=== PATIENT | male | born 1980 | race Caucasian/White ===

== ENCOUNTER 2018-10-18 15:57 | Observation (INO) | payer OTHER ==
[2018-10-18] MEDS ORDERED: diphenhydrAMINE 50 MG/ML VIAL ONE (16:14)
[2018-10-18] MEDS ORDERED: Famotidine/PF 20 mg/2ml Vial ONE (16:14)
[2018-10-18] MEDS ORDERED: EPINEPHrine 1 MG/ML AMP ONE (18:07)
--- NOTE | 2018-10-18 19:14 | PDOC.FPRHP ---
- History of Present Illness Chief Complaint: insect sting causing facial swelling History of Present Illness: 37 y/o male patient with a pmhx of staph infection in hardware of his right lower extremity, presents with lower facial swelling after being stung by an insect, presumably a wasp, around 1500 today. He states initially there was intense pain, and 10 minutes after the sting he had diffuse itching. 20 minutes after the sting he noticed swelling wrapping around his neck to his lower face in the arango distribution. He denies any tongue or throat swelling. He denies being light headed, or sensations of near passing out. He does not report any difficulty breathing, chest pain, abdominal pain, nausea, vomiting or diarrhea. He states he had a red rash diffusely over his skin, that appeared like a sunburn, but with no sun exposure. He had been drinking beer all day and was worried about "passing out," and not being aware of anaphylaxis. He called EMS, who reported a low O2 saturation and high pulse rate. EMS gave epi, solumedrol, and 1L bolus fluids in route to the ED. He received epi, benadryl and fluids in the ED because of continued low O2 saturation and systolic BP's in the 90's. ED Course: EMS gave epi, solumedrol, and 1L bolus fluids in route to the ED. He received epi, benadryl and 2 L's IV fluids in the ED because of continued low O2 saturation and systolic BP's in the 90's. - Allergies/Adverse Reactions Allergies Allergy/AdvReac Type Severity Reaction Status Date / Time venom-wasp Allergy Severe Anaphylaxis Verified 10/18/18 19:31 cefazolin [From Ancef] Allergy Unverified 10/18/18 19:15 - History PMHx: staph infection of hardware in RLE 2017 PSHx: Trauma with hardware placement in RLE and L-collar bone 2010. Removal of hardware in RLE 2016. FHx: non-contributory. States his parents and siblings do not have any medical problems. Social: drinks a pack of beer weekly. Smokes 1ppd for 25 years. past history of drug abuse (cocaine, speed, marijuana), no drug use in 17 years. - Review of Systems General: denies: fever/chills, weight/appetite/sleep changes, night sweats, fatigue Eyes: reports: other (itching eyes). denies: eye pain, vision changes ENT: denies: nasal congestion, rhinorrhea Respiratory: denies: cough, shortness of breath Cardiovascular: denies: chest pain, palpitation Gastrointestinal: denies: nausea, vomiting, diarrhea, abdominal pain Genitourinary: denies: incontinence Skin: reports: rashes, itching. denies: jaundice Musculoskeletal: reports: swelling (swelling to lower face and back of neck). denies: pain Neurological: denies: numbness, syncope, weakness - Vital signs BP: [102/69] HR: [84] RR: [13] Tmax: [98.4] Pox: [99]% on [1L] Wt: [77kg] - Physical Exam Constitutional: NAD, awake, alert and oriented, well developed HEENT: normocephalic and atraumatic, PERRLA, EOMI, conjunctiva clear, no scleral icterus, normal nasal mucosa, MMM, oropharynx clear, good dention -HEENT: no oral angioedema Neck: supple, FROM, trachea midline, no LAD Chest: no-tender to palpation, no lesions Heart: RRR, normal S1/S2, no murmurs/rubs/gallops, pulses present, no edema Lungs: no respiratory distress, good air movement, no rales/rhonchi, no retractions -Lungs: diffuse mild inspiratory wheezing Abdomen: soft, non-tender, bowel sounds present, no masses/distention Musculoskeletal: normal structure, normal tone, ROM grossly normal Neurological: no focal deficit, CN II-XII intact, normal sensation Skin: good turgor, capillary refill <2 seconds, no jaundice -Skin: urticaria over chest and cheeks Heme/Lymphatic: no unusual bruising or bleeding, no purpura Psychiatric: normal mood and affect, good judgment and insight, intact recent and remote memory FMR H&P: A/P - Problem List (1) Anaphylactic reaction Current Visit: Yes Status: Acute Code(s): T78.2XXA - ANAPHYLACTIC SHOCK, UNSPECIFIED, INITIAL ENCOUNTER (2) Acute respiratory failure with hypoxia Current Visit: Yes Status: Acute Code(s): J96.01 - ACUTE RESPIRATORY FAILURE WITH HYPOXIA (3) Hypotension Current Visit: Yes Status: Acute (4) Tobacco abuse disorder Current Visit: Yes Status: Chronic Code(s): Z72.0 - TOBACCO USE (5) Alcohol abuse Current Visit: Yes Status: Chronic Code(s): F10.10 - ALCOHOL ABUSE, UNCOMPLICATED - Plan 37 y/o male patient being admitted to observation on Telemetry for anaphylaxis after a wasp sting today. 1. Anaphylaxis secondary to wasp sting No angioedema at this time, but BP and O2 saturation dropped while receiving treatment by the EMS and in the ED. Systolic BP dropped to the 90's and O2 saturation in the 80's when first evaluated by the EMS. -monitor on telemetry -monitor vitals closely -continue supplemental oxygen at 1 L - Maintenance fluids at 125 mL /hr NS -Bolus 1 L NS if blood pressure is not maintained. -continue benadryl 2. Improved Acute Hypoxic Respiratory Failure secondary to anaphylaxis from wasp sting. -Patients oxygen saturation was in the 80's when first evaluated by the EMS. Upon my evaluation of the patient the O2 saturation was 99% on 1 L O2. -Continue 1 L O2 per nasal canula at this time. 3. Hypotension secondary to anaphylaxis from a wasp sting. - Monitor BP's closely - Maintenance IVF at 125 mL/hr of NS, NS is the preferred fluid of choice in treating anaphylaxis. 4. Alcohol abuse disorder -drinks one case a beer a week regularly -Resource Conservation Manager the patient on cessation 5. Tobacco abuse disorder -smokes 1 ppd -25 pack year history -international student counselor patient on the harms of tobacco use and benefits in cessation . 6. Full code 7. DVT PPX: SCD's 8. Regular Diet Disposition/LOS: Patient admitted to observation. LOS <48 hours. FMR H&P: Upper Level - Pertinent history 37 y/o M presents after a wasp sting around 3 pm this afternoon on the back of his neck. He reports it was painful and then within about 10 minutes the back of his neck started swelling around the sting and then he began itching and developing an itchy rash all over his body. He reports then that his face and lips started swelling. He had been drinking all day and was a little buzzed so he was scared to go to sleep in case his throat started swelling. He called EMS and they gave him Epi, solumedrol, 1L NS. When he got to the ED he received another epi, 2L NS, benadryl, and famotidine. He reports that the swelling had gone down by about 50% by the time he arrived in the ED and reports that at the time of my evaluation he was feeling completely back to his baseline. He has a 1pack/day smoking hx, but denies any known COPD. Denies any current cough or SOB. He was desatting to 80s while sleeping in the ED, so he was placed on 1L O2, but overall reports his breathing is at his baseline. - Pertinent findings BP 99/59, HR 101, RR 14, Temp 98.5, O2 97% on 1L NC PE: Gen - alert, oriented, resting comfortably in bed in no acute distress HEENT - MMM, no lip edema, no tongue edema, Mallampati II CV - tachycardic, regular rhythm, no murmurs Resp - No use of accessory muscles of respiration, good air movement, expiratory wheezes diffusely, no rales Skin - sting on back R of neck just below hairline, mild erythema and swelling around the sting, otherwise no rash or swelling noted - Plan Date/Time: 10/18/18 185 I, Shobha Carney MD, PGY-3, have evaluated this patient and agree with findings/ plan as outlined by agronomy internship resident. Pertinent changes/additions are listed here. 1. Anaphylaxis 2/2 wasp sting. Pt s/p epi x2, benadryl, solumedrol, famotidine, and 3L NS. Symptoms have resolved with just some mild residual erythema and swelling around the sting site. Patient currently able to protect airway with no concern for airway compromise. -Will obs on medical -Benadryl prn itching or hives -Monitor for signs of respiratory compromise -Will give NS @ 125 as pt was mildly hypotensive in ED and monitor BP's 2. Acute Hypoxic Respiratory Failure Likely 2/2 underlying COPD and may be patient's baseline. Expiratory wheezes diffusely on exam, no respiratory distress -Goal O2 around 92% -Will do trial of one neb and then duonebs prn -Wean O2 when able -May benefit from spirometry outpatient 3. Tobacco abuse -Resource Conservation Manager on cessation -Nicoderm patch 4. Alcohol abuse 3-24 beers daily. No hx withdrawal tremors or seizures. Last drink was this afternoon. -ASE protocol, will monitor scores and add medications if needed Dispo: Obs on medical VTE ppx: SCD's Code Status: Full
[2018-10-18 20:10] VITALS: BMI 23.6
[2018-10-18] MEDS ORDERED: diphenhydrAMINE 12.5 MG/5 ML UDCUP PO PRN (20:11)
[2018-10-18] MEDS ORDERED: Nicotine 14 MG PATCH TD SCH (21:00)
[2018-10-18] MEDS ORDERED: diphenhydrAMINE 25 MG CAP PO PRN (21:10)
[2018-10-18] MEDS: Sodium Chloride 0.9% 1,000 ML IV SCH (21:13)
--- NOTE | 2018-10-18 21:58 | PDOC.EVN ---
Event Note - Event Note Event Note: 37 y/o male patient with no significant PMH presents with lower facial/lip swelling after being stung by an insect, possibly a wasp or hornet, around 1500 today. He states initially there was intense pain, and 10 minutes after the sting he had diffuse itching. 20 minutes after the sting he noticed swelling wrapping around his neck to his lower face in the arango distribution. He denies any tongue or throat swelling. He denies being light headed, or sensations of near passing out. He does not report any difficulty breathing, chest pain, abdominal pain, nausea, vomiting or diarrhea. He denied any rash. He called EMS as he was worried that his symptoms may worsen. EMS reported a low O2 saturation and high pulse rate. They gave him epi, solumedrol, and 1L bolus fluids in route to the ED. He received epi, benadryl and fluids in the ED because of continued low O2 saturation and systolic BP's in the 90's. PMH/PSH /Meds/SH reviewed and agree with resident's documentation. Afebrile VSS Exam repeated by me and agree with resident's documentation. A/P: 1) Anaphylactic reaction to wasp/hornet sting - Place in obs and monitor overnight. Epinephrine if has recurrent symptoms.
[2018-10-19] MEDS: Sodium Chloride 0.9% 1,000 ML IV SCH (05:14)
--- NOTE | 2018-10-19 07:54 | PDOC.FM ---
- Subjective Subjective: Mr. Varma is doing well today. He denies LOC, SOB, chest pain, palpitations, LE edema, abdominal pain, swelling, throat tightness, altered mental status. This is the first allergic rxn to a wasp sting. - Objective Vital Signs & Weight: Vital Signs (12 hours) Temp Pulse Resp BP BP Pulse Ox 10/19/18 02:58 95/53 L 10/19/18 02:57 98.2 F 85 16 95/53 L 97 10/18/18 21:30 80 16 10/18/18 20:09 97.7 F 107 H 20 113/76 93 L Weight Weight 78.953 kg I&O: 10/18/18 10/19/18 10/20/18 06:59 06:59 06:59 Intake Total 2630 Output Total 700 Balance 1930 Phys Exam - Physical Examination Constitutional: NAD HEENT: PERRLA, moist MMs Neck: no JVD, full ROM Respiratory: no wheezing, no rales, no rhonchi, clear to auscultation bilateral Cardiovascular: RRR, no significant murmur Gastrointestinal: soft, non-tender, no distention Musculoskeletal: no edema, pulses present Neurological: non-focal Psychiatric: normal affect, A&O x 3 Skin: no rash Dx/Plan (1) Acute respiratory failure with hypoxia Code(s): J96.01 - ACUTE RESPIRATORY FAILURE WITH HYPOXIA Status: Acute (2) Anaphylactic reaction Code(s): T78.2XXA - ANAPHYLACTIC SHOCK, UNSPECIFIED, INITIAL ENCOUNTER Status : Acute (3) Hypotension Status: Acute (4) Alcohol abuse Code(s): F10.10 - ALCOHOL ABUSE, UNCOMPLICATED Status: Chronic (5) Tobacco abuse disorder Code(s): Z72.0 - TOBACCO USE Status: Chronic - Plan Plan: 1. Anaphylaxis 2/2 wasp sting. Pt s/p epi x2, benadryl, solumedrol, famotidine, and 3L NS. Symptoms have resolved with just some mild residual erythema and swelling around the sting site. Patient able to protect airway with no concern for airway compromise. -d/c with benadry and epinephrine pen 2. Acute Hypoxic Respiratory Failure - resolved Likely 2/2 underlying COPD and may be patient's baseline. Expiratory wheezes diffusely on exam, no respiratory distress 3. Tobacco abuse -Regional Marketing Manager on cessation 4. Alcohol abuse 3-24 beers daily. No hx withdrawal tremors or seizures. Last drink was this afternoon. Dispo: Home VTE ppx: SCD's Code Status: Full
[2018-10-19 08:33] VITALS: BP 111/67; TEMP 98.1
--- NOTE | 2018-10-19 10:38 | PRG ---
DATE OF SERVICE: 10/19/2018 I have reviewed the note of Dr. Juan Sampson, and agree with his assessment and plan. Mr. Varma is a pleasant 37-year-old gentleman, who had anaphylaxis from a wasp sting yesterday. He was appropriately treated by EMS with epinephrine and fluid boluses and this morning has much improved. He had developed some facial swelling, wheezing, and hypotension as a result of his wasp sting. He had no prior history of wasp sting allergy and we explained him the need to carry an EpiPen for the rest of his life. In the event, this morning, his vital signs are stable. He is no longer hypotensive. His room air oxygen saturation is 98%. He will be discharged with instructions for EpiPen today. Job ID: [id number]
--- NOTE | 2018-10-20 13:22 | DIS ---
DATE OF ADMISSION: 10/18/2018 DATE OF DISCHARGE: 10/19/2018 RESIDENT: Juan Sampson DO ADMITTING ATTENDING: Sera Jang MD DISCHARGE ATTENDING: Shamar Barraza MD CONSULTS: None. PROCEDURES: None. PRIMARY DIAGNOSES: 1. Severe anaphylaxis. 2. Acute hypoxic respiratory failure. SECONDARY DIAGNOSES: 1. Tobacco abuse. 2. Alcohol abuse. DISCHARGE MEDICATIONS: 1. Epinephrine 0.3 mg intramuscular as needed. 2. Diphenhydramine 50 mg q.8 hours p.r.n. HPI/HOSPITAL COURSE: Mr. Varma is a 37-year-old male with past medical history of Staph infection in hardware on his right lower extremity post crush injury, who presented with lower facial swelling after being stung by a wasp around 15:00 on 10/19/2018. He stated initially there was intense pain and tenderness after the sting, he had diffuse itching. 20 minutes after the sting, he noted swelling wrapping around his neck to his lower face in the arango distribution. He denied any tongue or throat swelling at that time. He states he had a rash diffusely over the skin, but without urticaria and endorsed pruritus. At this time, he called EMS, who gave him a dose of epinephrine, Solu-Medrol, 1 L bolus of fluid en route to the ED for systolic run pressures in the 90s. In the ED, he received an additional dose of epinephrine, Benadryl, and 2 more litre of IV fluids. At this point in time, it was also noted that have decreased oxygen saturation. After this course of treatment, the patient responded well without any complications. On 10/20, he no longer had any symptoms of anaphylaxis. He denied shortness of breath, urticaria, pruritis, swelling, and angioedema. This is the first anaphylactic reaction he has had to a wasp sting and did not have EpiPen. So on discharge, he was prescribed an EpiPen and Benadryl. He was instructed if he were to be stung again, he should inject the EpiPen and begin route to emergency department for further assessment. DISPOSITION: Stable. DISCHARGE INSTRUCTIONS: 1. Location: [facility]. 2. Diet: Regular diet. 3. Activity: Ad rena. 4. Followup: Follow up with primary care physician as needed. Job ID: [id number] [facility]
== END 2018-10-19 11:27 | disposition home or self-care (01) ==
LOC: ERS 15:57 → 2SW 18:18
PROVIDERS: ADMIT Family Medicine; ATTEND Family Medicine
DX: T63.461A Toxic effect of venom of wasps, accidental (unintentional), initial encounter (principal); T78.2XXA Anaphylactic shock, unspecified, initial encounter; J96.01 Acute respiratory failure with hypoxia; I95.9 Hypotension, unspecified; F17.210 Nicotine dependence, cigarettes, uncomplicated; F10.10 Alcohol abuse, uncomplicated; Z88.1 Allergy status to other antibiotic agents
CPT/HCPCS: 94640; 94760; 96361; 96372; 96374; 96375; G0378; J0171; J1200; J7620; Q0163; S0028